=== PATIENT | female | born 1955 | race Caucasian/White ===

== ENCOUNTER 2020-07-14 16:22 | Emergency (ER) | payer OTHER, SELFPAY ==
[2020-07-14 16:24] VITALS: BP 163/108; PULSE 71; RESP 16; TEMP 36.7; O2SAT 99; BMI 38.8
--- NOTE | 2020-07-14 18:14 | ED.DCSUM_ITS ---
History of Present Illness Chief Complaint: General Illness Informant: Patient Onset: Today Narrative: 65-year-old female presenting with multiple complaints. She states that she has a 10 pound weight gain over the course of the last month. She complains of bilateral back pain. She does not have dysuria or hematuria. Patient also states that she has had some shortness of breath with exertion. She does not have cardiac disease that she knows of. She denies any DVT/PE risk factors. She does states that her legs have been swelling over the course of the last month. She does deny chest pain. She denies orthopnea. She states he was seen at the urgent care prior to this and they sent her to the emergency room. Past Medical History - Allergies and Home Meds Allergies/Adverse Reactions: Allergies buspirone Allergy (Verified 07/14/20 19:24) NEEDS FOLLOW-UP lisinopril Allergy (Verified 07/14/20 19:25) NEEDS FOLLOW-UP cough ciprofloxacin Adverse Reaction (Verified 07/14/20 19:25) NEEDS FOLLOW-UP hrt palpatation Sulfa (Sulfonamide Antibiotics) Adverse Reaction (Verified 07/14/20 19:25) Diarrhea pt does not know Primary Care Physician: Indy Davis DO [STAFF PHYSICIAN] - Prior records reviewed: Yes Surgical History: noncontributory Smoking Status: Never smoker Review of Systems General: Denies: Chills, Fever Eyes: Denies: Visual changes - bilaterally, Diplopia ENT: Denies: Rhinorrhea, Sore throat Cardiovascular: Denies: Chest pain Respiratory: Reports: Dyspnea, Dyspnea on exertion. Denies: Paroxysmal noc turnal dyspnea Gastrointestinal: Denies: Abdominal pain, Nausea, Vomiting Genitourinary: Denies: Dysuria Musculoskeletal: Reports: Back pain. Denies: Myalgias, Arthralgias Skin: Denies: Rash, Abscess Neurological: Denies: Headache, Weakness Physical Exam Vital Signs/Narrative: Vital Signs Temp Pulse Resp BP Pulse Ox 07/14/20 16:24 98.1 F 71 16 163/108 H 99 Inital Vital Signs reviewed: Yes General: Well nourished, Well developed, No Acute Distress Head: Normocephalic, Atraumatic Eyes: Perrl, EOMI ENT: Moist mucous membranes, No rhinorrhea Neck: Supple, Nontender Cardiovascular: Regular rate, Regular rhythm Respiratory: No distress, CTA bilaterally Back: Normal Inspection, - - Tenderness to palpation approximately the level of T12-L1. There is no midline spinal tenderness. His she has bilateral tenderness in the paraspinal musculature. There is no rash, ecchymosis. Extremities: Nontender, No edema Skin: Normal color, No rash Neurological: Alert, Oriented x3 Psychological: Normal affect, Normal Mood Diagnostic/Tx/Re-eval Clinical Impression(s) from Imaging Studies Chest X-Ray 07/14/20 18:15 IMPRESSION: Degenerative changes, as described above. No demonstrated acute cardiopulmonary process. Electronically Signed: Maikol Franco, at 19:18 EDT Tel [phone], Service support , Laboratory Data 07/14/20 07/14/20 07/14/20 18:20 18:20 18:20 WBC 8.2 RBC 5.35 Hgb 14.5 Hct 46.0 MCV 86.0 MCH 27.1 MCHC 31.5 L RDW Std Deviation 42.8 RDW Coeff of Anthony 13.7 Plt Count 263 MPV 8.5 Immature Gran % (Auto) 0.200 Neut % (Auto) 67.4 Lymph % (Auto) 23.2 [place] % (Auto) 6.9 Eos % (Auto) 2.1 Baso % (Auto) 0.2 Absolute Neuts (auto) 5.5 Absolute Lymphs (auto) 1.91 Nucleated RBC % 0 Differential Comment SCANNED Sodium 139 Potassium 3.4 L Chloride 103 Carbon Dioxide 33.0 H Anion Gap 3 L BUN 10 Creatinine 0.86 Estim Creat Clear Calc 69.07 Est GFR (MDRD) Af Amer 86 Est GFR (MDRD) Non-Af 71 BUN/Creatinine Ratio 11.7 Glucose 90 Calcium 9.6 Troponin I < 0.015 B-Natriuretic Peptide 22.8 - Rhythm Strip Rhythm Strip: Sinus Rhythm Rate: 52 - EKG Initial EKG Interpretation: No Acute Injury Pattern, Sinus Bradycardia - Medical Decision Making Patient was seen and evaluated on arrival for multiple complaints. As far as her back pain goes there appears to be no midline spinal tenderness or deformity. She has bilateral muscular tenderness. She is concerned this her kidneys. Urinalysis from outside facility does show that she has a UTI. She does not specifically have CVA tenderness. She is also stating that she has weight gain and dyspnea on exertion addition to lower extremity edema. I did not see any pitting edema on examination. Her lungs are clear to auscultation. EKG is sinus rhythm without signs of ischemia. Troponin and BNP are negative. Her other labs are also normal. Given this I do not have a specific reason for her to be short of breath. I will treat her UTI with Keflex since the urgent care did not send her home with antibiotics. She was amenable to this plan. Given return precautions. Impression: 1. Dyspnea 2. 10 pound weight gain reported 3. Back pain 4. UTI ED Disposition - Plan for ED Patient: Disposition: Home or Assisted Living Instructions: Understanding Urinary Tract Infections (UTIs), ED Dyspnea Prescriptions: Cephalexin [Keflex] 500 mg PO Q12 #14 cap Transmission Status: Received by CANDICE RENTERIA[address] [place] [address] Referrals: Indy Davis DO [STAFF PHYSICIAN] -
--- NOTE | 2020-07-14 18:15 | RAD_ITS ---
STUDY: X-RAY CHEST REASON FOR EXAM: Female, 65 years old. Chest pain, abdominal pain. Fatigue. Nausea. TECHNIQUE: Single AP portable view of the chest. COMPARISON: None. FINDINGS: The lungs are clear and expanded. There is no demonstrated pleural abnormality. Normal size heart. Normal mediastinum and reina. Normal visualized pulmonary arteries. Normal visualized aortic arch and descending thoracic aorta. There are diffuse degenerative changes of the visualized thoracic spine. There is anterior fusion of the cervical spine. There is degenerative osteoarthritis of the bilateral shoulders. There is no demonstrated abnormality of the visualized soft tissue structures of the upper abdomen. RAD/Chest 1 View (Portable) IMPRESSION: Degenerative changes, as described above. No demonstrated acute cardiopulmonary process. Electronically Signed: Maikol Franco DO at 19:18 EDT Tel [phone], Service support ,
--- NOTE | 2020-07-14 18:15 | EKG12_ITS ---
Test Reason : GEN ILL Blood Pressure : / mmHG Vent. Rate : 052 BPM Atrial Rate : 052 BPM P-R Int : 208 ms QRS Dur : 098 ms QT Int : 444 ms P-R-T Axes : 039 000 -03 degrees QTc Int : 412 ms Sinus bradycardia Otherwise normal ECG Confirmed by BETO KELLEY, MADONNA ([id number]), adobe maker JEROD OSORIO ([id number]) on 07/15/2020 9:24:43 AM Referred By: LUIS DANIEL Confirmed By:MADONNA PÉREZ MD
[2020-07-14 18:33] LABS: Absolute Lymphocyte Count 1.91 X10^3/uL (0.83-4.51); Absolute Neutrophil Count 5.5 X10^3/uL (2.0-7.7); Basophil# 0.02 X10^3/uL; Basophil% 0.2 % (0-1); Eosinophil# 0.17 X10^3/uL; Eosinophils% 2.1 % (0-5); Hemoglobin 14.5 g/dL (12.0-15.0); Lymphocyte # 1.91 X10^3/ul (4.0); Lymphocyte % 23.2 % (19-41); Mean Corp Hgb Conc 31.5 g/dL (32-36); Mean Corpuscular Hgb 27.1 pg (27.0-32.0); Mean Platelet Vol. 8.5 fl (6.2-12.0); Monocyte# 0.57 X10^3/uL; Monocyte% 6.9 % (0-10); NRBC Flagged by Analyzer 0 % (0-5); Neutrophil # 5.53 X10^3/uL (2.7-7.7); Neutrophil % 67.4 % (47-70); POSITIVE MORPHOLOGY YES; Platelet Count 263 K/mm3 (150-450); RBC Distribution Width CV 13.7 % (11.6-14.6); RBC Distribution Width SD 42.8 fl (35.1-43.9); Red Blood Count 5.35 M/mm3 (4.2-5.4); White Blood Count 8.2 K/mm3 (4.4-11.0)
[2020-07-14 18:34] VITALS: BP 163/93; PULSE 58; RESP 12; O2SAT 100
[2020-07-14 18:35] VITALS: O2SAT 100
[2020-07-14 18:50] LABS: Anion Gap 3 (5-15); BUN 10 mg/dL (7-18); BUN/Creat Ratio 11.7 RATIO (10-20); Calcium,Total 9.6 mg/dL (8.5-10.1); Chloride 103 mmol/L (98-107); Creatinine, Serum 0.86 mg/dL (0.55-1.02); EST Glomerular Filtration Rate 71 mL/min (>60); Est Glom Filt Rate - Afr Amer 86 mL/min (>60); Estimated Creatinine Clearance 69.07 ml/min; Glucose 90 mg/dL (74-106); Potassium 3.4 mmol/L (3.5-5.1); Sodium Level 139 mmol/L (136-145)
[2020-07-14 18:54] LABS: Differential Comment SCANNED; Differential Indicated SCAN CRITERIA MET
[2020-07-14 19:04] LABS: BNP,B-Type NATRIURETIC PEPTIDE 22.8 pg/mL (0-100)
[2020-07-14] MEDS: Cephalexin 250 MG Capsule 500 MG PO (19:48)
[2020-07-14 19:49] VITALS: BP 146/78; PULSE 57; RESP 18; O2SAT 99
== END 2020-07-14 19:55 | disposition home or self-care (01) ==
PROVIDERS: Emergency Provider Student in an Organized Health Care Education/Training Program; PCP Internal Medicine
DX: M54.6 Pain in thoracic spine (principal); N39.0 Urinary tract infection, site not specified; R06.00 Dyspnea, unspecified; R63.5 Abnormal weight gain
CPT/HCPCS: 71045; 80048; 83880; 84484; 85025; 93005; 99285; A4216

== ENCOUNTER 2021-02-03 13:10 | Outpatient (RCR) | payer MEDICARE, OTHER, SELFPAY ==
[2021-02-03] MEDS: COVID-19 VACC, MRNA(PFIZER)/PF 30 MCG/0.3 ML SYRINGE IM (12:00)
[2021-02-24] MEDS: COVID-19 VACC, MRNA(PFIZER)/PF 30 MCG/0.3 ML SYRINGE IM (11:46)
== END 2021-05-05 23:59 ==
LOC: IMMUN 13:10
PROVIDERS: PCP Internal Medicine; Visit Provider Family Medicine
DX: Z23 Encounter for immunization (principal)
CPT/HCPCS: 0001A; 0002A; 91300

== ENCOUNTER 2022-07-25 13:16 | Observation (INO) | payer MEDICARE, OTHER, SELFPAY ==
[2022-07-25] VITALS (10 sets, daily range): BP systolic 123–156; BP diastolic 66–93; PULSE 64–94; RESP 17–20; TEMP 36.2–37.1; O2SAT 92–99; BMI 37.9; BMI 37.0
--- NOTE | 2022-07-25 13:31 | EKG12_ITS ---
Test Reason : SOB Blood Pressure : / mmHG Vent. Rate : 089 BPM Atrial Rate : 089 BPM P-R Int : 214 ms QRS Dur : 092 ms QT Int : 362 ms P-R-T Axes : 041 -07 023 degrees QTc Int : 440 ms Sinus rhythm with 1st degree A-V block Otherwise normal ECG Confirmed by MICHAEL KELLEY, JOCELYN ([id number]), web editor ELOINA BROWN ([id number]) on 07/27/2022 7:33:06 AM Referred By: SRIDEVI Confirmed By:JOCELYN RODRIGUEZ MD
--- NOTE | 2022-07-25 13:32 | EDS_ITS ---
HPI History of Present Illness Chief Complaint: Shortness of Breath Informant: patient Onset/Context/Timing Onset: Weeks Timing: Intermittent Quality: Positive for Dyspnea on exertion Current Severity: Mild Maximum Severity: Mild Worsened by: Exertion Relieved by: Rest Associated Symptoms cough; Negative for ear pain, fever, sore throat, subjective, chills, sweats or clear sputum Chest Pain: Positive for None Narrative Narrative: 67-year-old female history of reflux, hypertension previously had A. fib in 2009 which resolved. She has been anemic before but has never needed a transfusion. Presents complaining of shortness of breath primarily exertional better at rest since the beginning of the month. Denies any chest pain. At times gets a bandlike discomfort in her upper abdomen. Denies any fever or chills. She has a chronic cough which she believes is secondary to her blood pressure medication. No chest pain. No hemoptysis. No prior history of DVT or PE. No recent travel, surgery or immobilization. States she did think she had dark stool about 2 weeks ago but that is since resolved. She is never been anemic to the point to need transfusion. She has no known cardiac history other than prior A. fib which resolved. Patient PE Risk Factors: Negative for Cancer, OCP + Smoking + > 35, Prior DVT or PE, Recent immobilization, Recent surgery or Recent travel Prior similar symptoms: No Recent Illness/Hospitalization: No PFSH PFSH Home Medications Protonix 1 tab PO DAILY 07/14/20 [History Last Taken Unknown] cephalexin 500 mg capsule 500 mg PO Q12 #14 caps 07/14/20 [Rx Last Taken Unknown] citalopram 10 mg tablet 20 mg PO DAILY 07/14/20 [History Last Taken Unknown] hydrochlorothiazide 25 mg tablet 25 mg PO DAILY 07/14/20 [History Last Taken Unknown] losartan 50 mg tablet 50 mg PO DAILY 07/14/20 [History Last Taken Unknown] Allergy/AdvReac Type Severity Reaction Status Date / Time buspirone Allergy NEEDS Verified 07/25/22 13:16 FOLLOW-UP lisinopril Allergy NEEDS Verified 07/25/22 13:16 FOLLOW-UP ciprofloxacin AdvReac NEEDS Verified 07/25/22 13:16 FOLLOW-UP Sulfa (Sulfonamide AdvReac Diarrhea Verified 07/25/22 13:16 Antibiotics) Social History Smoking Status: Never smoker ROS ROS ED ROS Narrative Shortness of breath primarily exertional. Review of Systems ROS Unobtainable: Denies due to encephalopathy Constitutional Constitutional ED: Denies chills or fever(s) Eyes Eyes: Denies blurry vision ENT ENT ED: Denies ear pain Cardiovascular Cardiovascular: Denies chest pain, palpitations or racing heartbeat Respiratory/Chest Respiratory/Chest: Reports cough; Denies dyspnea Gastrointestinal Gastrointestinal: Denies abdominal pain or constipation Genitourinary Genitourinary ED: Denies dysuria or hematuria Musculoskeletal Musculoskeletal: Denies arthralgias Integumentary Denies abscess Neurologic Neurologic: Denies headache(s) Psychiatric Psychiatric: Denies anxiety Endocrine Endocrinology: Denies cold intolerance Hematologic/Lymphatic Hematologic/Lymphatic: Denies easy bleeding Allergic/Immunologic Allergic/Immunologic ED: Denies mouth swelling EXAM Physical Exam Narrative Exam Narrative: 67-year-old female no acute distress. Vital signs stable afebrile. Pulse ox 90% on room air no hypoxia. H EENT exam unremarkable. Neck nontender no JVD. No lymphadenopathy. Lungs clear to auscultation bilaterally. Heart regular rate and rhythm rate about 90 no murmur. Chest were nontender. Abdomen soft nontender. Moving all 4 extremities. Calves are nontender without edema or cords. Neurologically she is awake and alert with no focal motor deficits. Const Vital Signs: 07/25/22 13:17 07/25/22 13:45 07/25/22 13:45 Temperature 97.1 F L 98.7 F Temperature Source Temporal Oral Pulse Rate 94 76 76 Respiratory Rate 20 H 17 17 Blood Pressure 136/93 H 143/87 H 143/87 H Blood Pressure Mean 107 105 105 Pulse Ox 98 92 92 Oxygen Delivery Method Room Air Room Air Room Air 07/25/22 13:45 07/25/22 14:20 Temperature 98.6 F Temperature Source Oral Pulse Rate 64 Respiratory Rate 18 Blood Pressure 144/84 H Blood Pressure Mean 104 Pulse Ox 97 Oxygen Delivery Method Room Air Room Air Positive well nourished, well developed and obese; Negative for cachectic, contractures or unkempt General Appearance ED: well developed and NAD; Negative for unkempt, cachectic, contractures or pallor Nutritional Appearance: obese; Negative for cachectic HEENT Reports moist mucous membranes; Denies dry mucous membranes atraumatic; Negative for trauma or tenderness Mouth ED: No dry mucous membranes Mouth: No dry mucous membranes Eyes PERRL and EOMs intact bilaterally General Eye ED: Negative for pale conjunctiva or scleral icterus Neck no lymphadenopathy, supple, no meningeal signs and no JVD General: Negative for tenderness Lymph Lymphatic: Negative for other Chest Wall Chest: Negative for other Resp normal respiratory effort and clear to auscultation bilaterally Effort and Inspection: Negative for pain with movement Auscultation: Negative for rales, rhonchi or wheezes Cardio regular rate, regular rhythm, S1 normal heart sound, S2 normal heart sound and no murmurs Rate: Negative for bradycardia or tachycardic Rhythm: Negative for abnormal rhythm GI non-tender, non-distended and no masses Inspection: Negative for other Auscultation: normoactive bowel sounds; Negative for hyperactive bowel sounds Palpation: soft; Negative for tender or guarding Bladder / Kidney Exam: No other Back/Spine no CVA tenderness and normal to inspection General Back: Negative for CVA tenderness or tenderness Extremity normal to inspection General Extremety ED: Negative for edema or tenderness General Extremity: Negative for edema Neuro oriented x3 and CN's II-XII intact bilaterally Sensorium / Orientation: alert, oriented to person, oriented to place and oriented to time; Negative for orientation impaired, confused, lethargic or stuporous Speech: speech normal Motor Exam: strength 5/5 throughout Psych mental status grossly normal Appearance: Negative for unkempt Attitude: No agitated Mood & Affect: Negative for depressed Thought Process: normal thought process Skin no wounds and skin turgor normal General Skin Exam: Negative for jaundice or pallor Lesions: no lesions Rashes: no rashes Trauma: Negative for abrasion MDM MDM MDM Narrative Medical decision making narrative: 67-year-old with exertional shortness of breath. No chest pain specifically. Exam benign. Cardiac work-up. Walk with pulse ox on room air. Repeat exam unchanged. We did walk the patient around the department she did not get hypoxic but she got severely winded. She states she can even do 2 flights of steps she has to stop because she starts having so much trouble breathing. She is not having classic anginal chest pain. She has not had I stress test in many years and has never had a cardiac catheterization. She and I discussed options and I will talk to the hospitalist about admitting her for stress testing and possible echo to rule out valvular heart disease or coronary disease. Her exam remains benign. Lab Data Attestation: I reviewed the patient's lab results. Lab results narrative: CBC shows a white count of 7.2. H&H of 14.9 and 46. Platelets of 302. Electrolytes unremarkable gap of 6 normal BUN and creatinine. Glucose 145. Troponin 6. D-dimer is 0.3. Potassium slightly low at 3.1. Labs: Laboratory Results - last 24 hr 07/25/22 07/25/22 07/25/22 13:40 13:40 13:40 WBC 7.2 RBC 5.46 H Hgb 14.9 Hct 46.0 MCV 84.2 MCH 27.3 MCHC 32.4 RDW Std Deviation 41.5 RDW Coeff of Anthony 13.5 Plt Count 302 MPV 8.5 Immature Gran % (Auto) 0.100 Neut % (Auto) 67.1 Lymph % (Auto) 22.8 [place] % (Auto) 7.9 Eos % (Auto) 1.5 Baso % (Auto) 0.6 Absolute Neuts (auto) 4.9 Absolute Lymphs (auto) 1.65 Nucleated RBC % 0 D-Dimer Quant (PE/DVT) 0.30 Sodium 138 Potassium 3.1 L Chloride 103 Carbon Dioxide 29.0 Anion Gap 6 BUN 14 Creatinine 0.95 Estim Creat Clear Calc 60.88 Est GFR (MDRD) Af Amer 75 Est GFR (MDRD) Non-Af 62 BUN/Creatinine Ratio 14.7 Glucose 145 H Calcium 9.9 Troponin I High Sens 6 Radiography Chest X-Ray - ED: 1 View, Read by ED Physician, Read by Radiologist, Heart, Lungs, Mediastinum, Bony Structures, No Acute Disease and Chronic Changes Diagnostic Testing: Clinical Impression(s) from Imaging Studies Chest X-Ray 07/25/22 13:48 IMPRESSION: Normal x-ray examination of the chest. Electronically Signed: Yinka Morrow MD at 14:05 EDT , Chest x-ray, portable, single view interpreted myself and radiologist as no acute abnormality. Normal cardiac silhouette. No CHF. No infiltrate. Rhythm Strip Rhythm Strip: Sinus Rhythm Rate: 89 Ectopy: None EKG Initial EKG: Attestation: I personally reviewed and interpreted this EKG as follows: Interpretation: Sinus Rhythm and No Acute Injury Pattern Comments: Normal sinus rhythm rate of 89 no acute signs of [place] or ischemia. First-degree AV block with a [place] interval of 214. Discharge Plan Dx/Rx/DC Orders Clinical Impression: Exertional dyspnea, History of hypertension Disposition Disposition: Acute Care Hospital [facility]
[2022-07-25 13:43] LABS: Absolute Lymphocyte Count 1.65 X10^3/uL (0.83-4.51); Absolute Neutrophil Count 4.9 X10^3/uL (2.0-7.7); Basophil# 0.04 X10^3/uL; Basophil% 0.6 % (0-1); Eosinophil# 0.11 X10^3/uL; Eosinophils% 1.5 % (0-5); Hemoglobin 14.9 g/dL (12.0-15.0); Lymphocyte # 1.65 X10^3/ul (0.83-4.51); Lymphocyte % 22.8 % (19-41); Mean Corp Hgb Conc 32.4 g/dL (32-36); Mean Corpuscular Hgb 27.3 pg (27.0-32.0); Mean Corpuscular Volume 84.2 fL (81-99); Mean Platelet Vol. 8.5 fl (6.2-12.0); Monocyte# 0.57 X10^3/uL; Monocyte% 7.9 % (0-10); NRBC Flagged by Analyzer 0 % (0-5); Neutrophil # 4.86 X10^3/uL (2.7-7.7); Neutrophil % 67.1 % (47-70); Platelet Count 302 K/mm3 (150-450); RBC Distribution Width CV 13.5 % (11.6-14.6); RBC Distribution Width SD 41.5 fl (35.1-43.9); Red Blood Count 5.46 M/mm3 (4.2-5.4); White Blood Count 7.2 K/mm3 (4.4-11.0)
--- NOTE | 2022-07-25 13:48 | RAD_ITS ---
STUDY: X-RAY CHEST REASON FOR EXAM: Female, 67 years old. chest pain TECHNIQUE: Single AP portable view of the chest. COMPARISON: 07/14/2020 FINDINGS: Status post anterior cervical discectomy and fusion lower cervical spine. The lungs are clear and expanded. There is no demonstrated pleural abnormality. Normal size heart. Normal mediastinum and reina. Normal visualized pulmonary arteries. Normal visualized aortic arch and descending thoracic aorta. Normal visualized thoracic spine. Normal visualized ribs, clavicles, and shoulders. There is no demonstrated abnormality of the visualized soft tissue structures of the upper abdomen. RAD/Chest 1 View (Portable) IMPRESSION: Normal x-ray examination of the chest. Electronically Signed: Yinka Morrow MD at 14:05 EDT ,
[2022-07-25 14:00] LABS: Anion Gap 6 (5-15); BUN 14 mg/dL (7-18); BUN/Creat Ratio 14.7 RATIO (10-20); Calcium,Total 9.9 mg/dL (8.5-10.1); Chloride 103 mmol/L (98-107); Creatinine, Serum 0.95 mg/dL (0.55-1.02); EST Glomerular Filtration Rate 62 mL/min (>60); Est Glom Filt Rate - Afr Amer 75 mL/min (>60); Estimated Creatinine Clearance 60.88 ml/min; Glucose 145 mg/dL (74-106); Potassium 3.1 mmol/L (3.5-5.1); Sodium Level 138 mmol/L (136-145); Troponin-I HS (w/2H Reflex) 6 pg/mL (3.0-54.0)
--- NOTE | 2022-07-25 15:19 | HP.PCM.HOS_ITS ---
HPI - General General Date of Admission: 07/25/22 Date of Service: 07/25/22 HPI Narrative HARRIET VICTORIA, is a 67 F with a PMH as outlined who presents via the ED on 07/25/2022 with a complaint of shortness of breath and easy fatiguability. Her symptoms had been going on for about a month. Her shortness of breath is associated with worsening with exertion and gets better with rest. It has been gradually worsening and she is unable to even climb 2 flights of stairs, which is unlike her. She denied any chest pain, cough, palpitations, nausea, vomiting or any other symptoms. She denied any lightheadedness or dizziness. She admitted to episodic palpitations, and also said she had been feeling very weak and tired. She also said she had been taking some medication for her arthritis, and says she had black stools for about 2 weeks whilst on the medication, which was later seen to be diclofenac per review of her MyChart. She denies any history of PE, or any recent long distance travel, surgery or otherwise. She has a history of afib back in 2009 which had subsequently resolved. She also complains of feeling very bloated and lots of belching and passing gas. She had a mammogram last year which was normal, and had a cologuard last year which was also n egative. She had a colonoscopy ~ 6 years ago which was also negative. She denies any history of cancer, though says her sister was recently diagnosed with thyroid cancer. Vitals in the ED were blood pressure 144/84, pulse rate of 64 respiratory rate of 18 and she was saturating at 97% on room air. Temperature was 98.6.CBC was unremarkable. BMP was significant for potassium of 3.1, and initial high sensitivity troponin was negative. EKG showed no acute ST changes. CXR showed no acute cardiopulmonary process. She is being admitted to be managed for exertional dyspnea and easy fatiguability. [facility] Home Medications Protonix 1 tab PO DAILY 07/14/20 [History Last Taken Unknown] cephalexin 500 mg capsule 500 mg PO Q12 #14 caps 07/14/20 [Rx Last Taken Unknown] citalopram 10 mg tablet 20 mg PO DAILY 07/14/20 [History Last Taken Unknown] hydrochlorothiazide 25 mg tablet 25 mg PO DAILY 08/17/20 [History Last Taken Unknown] losartan 50 mg tablet 50 mg PO DAILY 07/14/20 [History Last Taken Unknown] Allergy/AdvReac Type Severity Reaction Status Date / Time buspirone Allergy NEEDS Verified 07/25/22 13:16 FOLLOW-UP lisinopril Allergy NEEDS Verified 07/25/22 13:16 FOLLOW-UP ciprofloxacin AdvReac NEEDS Verified 07/25/22 13:16 FOLLOW-UP Sulfa (Sulfonamide AdvReac Diarrhea Verified 07/25/22 13:16 Antibiotics) Social History Smoking Status: Never smoker ROS Review of Systems ROS Unobtainable: Denies due to encephalopathy Constitutional Constitutional: Reports change in weight, fatigue, malaise and weakness; Denies anorexia, chills or fever(s) Eyes Eyes: Denies change in vision ENT HEENT: Denies dysphagia, ear pain or nasal congestion Cardiovascular Cardiovascular: Reports chest pain, dyspnea on exertion and palpitations; Denies claudication, edema, lightheadedness, orthopnea, paroxysmal nocturnal dyspnea or rapid heart rate Respiratory/Chest Respiratory/Chest: Denies cough, dyspnea, excessive phlegm production, hemoptysis or productive cough Gastrointestinal Gastrointestinal: Reports melena; Denies abdominal pain, constipation, diarrhea, nausea or vomiting Genitourinary Genitourinary: Denies dysuria Musculoskeletal Musculoskeletal: Denies back pain, joint pain, joint stiffness or joint swelling Neurologic Neurologic: Denies confusion, dizziness, focal weakness or headache(s) Psychiatric Psychiatric: Denies anxiety Hematologic/Lymphatic Hematologic/Lymphatic: Denies anemia or easy bleeding Vital Signs Vital Signs Vital Signs: 07/25/22 13:17 07/25/22 13:45 07/25/22 13:45 Temperature 97.1 F L 98.7 F Temperature Source Temporal Oral Pulse Rate 94 76 76 Respiratory Rate 20 H 17 17 Blood Pressure 136/93 H 143/87 H 143/87 H Blood Pressure Mean 107 105 105 Pulse Ox 98 92 92 Oxygen Delivery Method Room Air Room Air Room Air 07/25/22 13:45 07/25/22 14:20 Temperature 98.6 F Temperature Source Oral Pulse Rate 64 Respiratory Rate 18 Blood Pressure 144/84 H Blood Pressure Mean 104 Pulse Ox 97 Oxygen Delivery Method Room Air Room Air Weight Weight: 257 lb 0.944 oz Body Mass Index (BMI) 37.9 Physical Exam Const alert, oriented x3 and no apparent distress General Appearance: cooperative HEENT normocephalic, head/scalp atraumatic, hearing grossly normal bilaterally and moist oral mucous membranes Mouth: oral and palatal mucosa normal Eyes PERRL, EOMs intact bilaterally and conjunctivae normal Neck no lymphadenopathy and supple Resp normal respiratory effort, no retractions, no use of accessory muscles and clear to auscultation bilaterally Cardio regular rate, regular rhythm, S1 normal heart sound, S2 normal heart sound and no murmurs GI normal to inspection, nondistended, normoactive bowel sounds, soft to palpation and non-tender Extremity normal to inspection and full ROM Neuro oriented x3, CN's II-XII intact bilaterally and moves all extremities Sensorium / Orientation: awake and alert Motor Exam: strength 5/5 throughout Psych affect normal Results Lab / Micro Data Result Diagrams: 07/25/22 13:40 07/25/22 13:40 Labs: Laboratory Results - last 24 hr 07/25/22 13:40: WBC 7.2, RBC 5.46 H, Hgb 14.9, Hct 46.0, MCV 84.2, MCH 27.3, MCHC 32.4, RDW Std Deviation 41.5, RDW Coeff of Anthony 13.5, Plt Count 302, MPV 8.5, Immature Gran % (Auto) 0.100, Neut % (Auto) 67.1, Lymph % (Auto) 22.8, Conway % (Auto) 7.9, Eos % (Auto) 1.5, Baso % (Auto) 0.6, Absolute Neuts (auto) 4.9, Absolute Lymphs (auto) 1.65, Nucleated RBC % 0 07/25/22 13:40: Sodium 138, Potassium 3.1 L, Chloride 103, Carbon Dioxide 29.0, Anion Gap 6, BUN 14, Creatinine 0.95, Estim Creat Clear Calc 60.88, Est GFR (MDRD) Af Amer 75, Est GFR (MDRD) Non-Af 62, BUN/Creatinine Ratio 14.7, Glucose 145 H, Calcium 9.9, Troponin I High Sens 6 07/25/22 13:40: D-Dimer Quant (PE/DVT) 0.30 Rhythm Strip Rhythm Strip: Sinus Rhythm Rate: 89 Ectopy: None Radiology Impression Chest X-Ray 07/25/22 13:48 IMPRESSION: Normal x-ray examination of the chest. Electronically Signed: Yinka Morrow MD at 14:05 EDT , Assessment & Plan Assessment/Plan (1) Exertional dyspnea: (2) Weakness: PLAN: Plan #Exertional shortness of breath and easy fatiguability * her symptoms are very vague. * She has had associated unintentional weight loss of ~ 12 pounds over the last month * she also had dark stools ~ 2 weeks ago whilst taking diclofenac for arthritis * troponin x 2 is negative so far * admit to PCU * SL nitroglycerin, PO aspirin * will check TSH * will order stress test tomorrow * will consider getting a schroeder CT of the chest, abdomen and pelvis to rule out any malignancy in light of her unintentional weight loss, palpitations and weakness. * check stool for occult blood * D dimer is only 0.3. * #Hypokalemia: K is 3.1. Will replace and trend. #Hypertension: * on HCTZ and losartan. * BP is elevated in the 170s at time of review. Says she takes her meds in the evenings, and took it last night, but hasnt yet taken it this morning. DVT prophylaxis: lovenox Code status: full code * Patient counseled extensively about different types of CODE STATUS including full code, DNR CCA and DNR CCA. Patient elects to be full code. * Total pzud-bi-ejqs time 16 minutes. Charges/Coding Visit Charges OBSV E&M: 57126 Initial observation care L3 Procedures Hospitalists Procedures: 62220 Advncd Care Plan 30 Min
[2022-07-25 15:41] LABS: Reflex Troponin-HS? (from REC) Y
[2022-07-25 16:35] LABS: Troponin-I HS 7 pg/mL (3.0-54.0)
[2022-07-25] MEDS: Potassium Chloride Oral Tablet 20 MEQ 40 MEQ PO (18:07)
[2022-07-25 18:12] LABS: Thyroid Stim Hormone (TSH) 1.96 uIU/mL (0.358-3.74)
[2022-07-25 20:05] LABS: Troponin-I HS 7 pg/mL (3.0-54.0)
[2022-07-25] MEDS: hydroCHLOROthiazide 25 MG Tablet PO (22:33)
[2022-07-25] MEDS: Losartan Potassium 50 MG Tablet PO (22:33)
[2022-07-25] MEDS: Pantoprazole Sodium 20 MG Tablet PO (22:33)
[2022-07-25] MEDS: Citalopram 20 MG Tablet PO (22:33)
[2022-07-25] MEDS: Calcium Carbonate 500 MG Tablet 1000 MG PO (23:03)
[2022-07-26 03:37] VITALS: PULSE 59
[2022-07-26 06:02] VITALS: BP 156/77; PULSE 58; RESP 16; TEMP 37; O2SAT 96
[2022-07-26 07:15] VITALS: PULSE 55
--- NOTE | 2022-07-26 09:31 | STRESSREP ---
Stress Test Report Date: Procedure: Exercise tolerance test/imaging study Indications: Shortness of breath/dyspnea on exertion Consent: Per the patient Procedure: The patient exercised on a Rex protocol for 1 minute and 31 seconds not completing Stage I achieving a peak heart rate of 150 bpm (97% predicted maximal heart rate) with a peak blood pressure 118/82 mmHg and a peak MET capacity of 4 METs. The baseline ECG demonstrated normal sinus rhythm. The peak exercise ECG demonstrated no obvious ECG changes. There were no cardiac dysrhythmias pretest, during exercise, or recovery. The functional capacity was considered decreased. There was no complaint of chest discomfort during exercise or recovery. The examination was discontinued secondary to dyspnea. Impression: 1. Technically adequate (percent predicted maximal heart rate greater than 85%) exercise tolerance test 2. Peak exercise ECG with no obvious ECG changes 3. There were no cardiac dysrhythmias pretest, during exercise, or recovery 4. Pharmacologic (Regadenoson) evaluation pending Procedure: Pharmacologic stress nuclear imaging study Consent: Per the patient Procedure: The patient underwent pharmacologic (Regadenoson 0.4mg ) evaluation with a peak heart rate of 118 beats per minute (76%predicted maximal heart rate) and a peak blood pressure of 138/80 mmHg. The baseline ECG demonstrated normal sinus rhythm; occasional PVC. The peak pharmacologic ECG demonstrated no obvious ECG changes. There was an occasional PVC preinfusion and in recovery. There was no complaint of chest discomfort during pharmacologic infusion or recovery. The examination was discontinued secondary to completion of protocol. Impression: 1. Pharmacologic (Regadenoson) evaluation 2. Peak pharmacologic ECG with no obvious ECG changes. 3. There was an occasional PVC preinfusion and in recovery. 4. Nuclear images pending Myocardial perfusion imaging study: Technique: The patient was injected with 14.5 millicuries of technetium 99m Cardiolite and subsequently rest SPECT Cardiolite nuclear imaging was obtained in the horizontal long, vertical long, and short axis views. The patient exercised on a Rex protocol for 1 minute and 31 seconds not completing Stage I achieving a peak heart rate of 150 bpm (97% predicted maximal heart rate) with a peak blood pressure 118/82 mmHg and a peak MET capacity of 4 METs. The patient underwent pharmacologic (Regadenoson) evaluation with a peak heart rate of 118 bpm (76% predicted maximal heart rate) and a peak blood pressure of 138/80 mmHg. The patient was injected with 44.2 millicuries of technetium 99m Cardiolite and subsequently stress SPECT Cardiolite nuclear imaging was obtained in the horizontal long, vertical long, and short axis views. A gated Cardiolite study at peak stress was obtained. Interpretation: Rest and stress SPECT Cardiolite nuclear imaging status post realignment, normalization, and attenuation correction demonstrate the appearance of body motion during image acquisition and at rest the appearance of subtle diminished tracer uptake in the distal anterior/anteroapical segments which appears to improve/normalize following stress. There is end systolic thickening and brightening. The gated Cardiolite study demonstrates myocardial thickening and inward wall motion. The reported LVEF is 79%. Impression: 1. Rest and stress SPECT current nuclear imaging demonstrate the appearance of body motion during image acquisition and at rest the appearance of subtle diminished tracer uptake in the distal anterior/anteroapical segments which appears to improve/normalize following stress appearing compatible with shifting soft tissue attenuation/artifact with no myocardial perfusion changes considered diagnostic for associated stress-induced myocardial ischemia. 2. The gated Cardiolite study reports an LVEF of 79%. This note was generated with [employer] software. It may contain incorrect words, spelling, and punctuation that were not noted in checking the note before signing.
[2022-07-26 09:35] VITALS: BP 115/71; PULSE 61; RESP 18; TEMP 36.6; O2SAT 97
[2022-07-26 10:26] LABS: Anion Gap 7 (5-15); BUN 13 mg/dL (7-18); BUN/Creat Ratio 13.6 RATIO (10-20); Calcium,Total 9.5 mg/dL (8.5-10.1); Chloride 104 mmol/L (98-107); Creatinine, Serum 0.96 mg/dL (0.55-1.02); EST Glomerular Filtration Rate 62 mL/min (>60); Est Glom Filt Rate - Afr Amer 75 mL/min (>60); Estimated Creatinine Clearance 60.24 ml/min; Glucose 127 mg/dL (74-106); Potassium 3.5 mmol/L (3.5-5.1); Sodium Level 137 mmol/L (136-145)
--- NOTE | 2022-07-26 10:56 | CT_ITS ---
STUDY: CT CHEST, ABDOMEN T PELVIS WITH CONTRAST REASON FOR EXAM: Female, 67 years old. Unintentional weight loss, SOB, abd pain RADIATION DOSAGE (If Supplied By Facility): CTDIvol = ( 23.43 ) mGy, DLP = ( 2363.84 ) mGycm TECHNIQUE: Transaxial imaging was performed following intravenous administration of Oral and amp; IV Gastrografin and amp; 100mL Isovue-300. Multiplanar coronal and sagittal images were reformatted. Individualized dose optimization techniques were used for this CT. COMPARISON: No relevant priors. FINDINGS: CHEST Mild heterogeneous appearance of the thyroid gland. Small benign-appearing bilateral axillary lymph nodes. Mild degree of the increased linear markings at the lung bases suggestive of bibasilar scarring. There is no demonstrated pleural abnormality. Normal heart and pericardium. Normal mediastinum. Normal hilar regions. Normal unenhanced pulmonary arteries. Normal aorta arch and descending thoracic aorta. There are degenerative changes of the thoracic spine. Fatty infiltration of the liver. The patient is status post cholecystectomy. ABDOMEN There is decreased attenuation of the liver consistent with steatosis. There are surgical clips in the gallbladder fossa consistent with a prior cholecystectomy. Normal spleen. Normal pancreas. Normal bilateral adrenal glands. Normal right kidney. Normal left kidney. There is a small hiatal hernia. Normal small intestine. There are multiple colonic diverticula consistent with diverticulosis. A moderate amount of fecal material is seen throughout the colon. The appendix is visualized and appears normal. There is scattered atherosclerotic calcification of the abdominal aorta, without a demonstrated aneurysm. Normal inferior vena cava. Normal retroperitoneum. There is a right-sided inguinal hernia containing adipose tissue. There are diffuse degenerative changes of the visualized lumbar spine. PELVIS Normal urinary bladder. There is no pelvic fluid. There is no pelvic lymphadenopathy or mass lesion. Normal visualized pelvic arteries. CT/CT Chest, Abd, Pel w/Contrast IMPRESSION: Fatty infiltration of the liver. Status post cholecystectomy. Scattered sigmoid diverticula. Moderate amount of fecal material is seen throughout the colon. Electronically Signed: Juan C Yanes MD at 13:34 EDT ,
--- NOTE | 2022-07-26 11:02 | DCINST_ITS ---
Discharge Instructions Diet Discharge Diet: 2000 Calorie Control Diet Activity Discharge Activity: Return to Normal Activity Dressing / Incision Call your doctor if you observe: Shortness of breath, Dizziness and Chest pain Follow Up Care Test Results: Test results from this visit will be discussed in further detail at your follow- up appointment, if applicable. Discharge Plan Admission Admit Date/Time: 07/25/22 15:32 Primary Reason for Your Visit: Dyspnea, fatigue Attending Provider: Ronnie Alberts Primary Care Provider: Jonathan Wright Consulting Providers: Hallie Han Discharge Orders/Prescriptions Prescriptions: New pantoprazole [Protonix] 40 mg tablet,delayed release (DR/EC) 40 mg PO BID Qty: 60 0RF Continued losartan 50 MG tablet 25 mg PO DAILY citalopram 10 mg tablet 20 mg PO DAILY hydrochlorothiazide 25 MG tablet 25 mg PO DAILY amlodipine 10 mg PO.IVFORM DAILY Discontinued Protonix 20 MG 1 tab PO DAILY pantoprazole 40 mg PO.IVFORM DAILY Referrals / Follow Up: Jonathan Wright MD [Primary Care Provider] - In 1 Week Disposition Disposition (needs filled in before D/C Order can be placed): Home, Self Care
--- NOTE | 2022-07-26 11:07 | CASEMGMT ---
ERNST notified patient that her Healthcare Power of Instructor Physical and Healthcare Living Will are not on file at [facility]. ERNST asked patient to bring in a copy of documents when able. Kelly LAFLEUR
[2022-07-26 11:30] VITALS: PULSE 57
[2022-07-26 11:55] LABS: Hemoglobin A1c 5.7 % (3.8-5.6)
--- NOTE | 2022-07-26 12:12 | CASEMGMT ---
Pt has been up independent in room per nursing and states no concerns with going home at time of discharge. Pt is awaiting CT scan of abd/pelvis and then plan is for d/c. Dorinda FRAZIER CM
[2022-07-26] MEDS: Acetaminophen 325 MG Tablet 650 MG PO (13:19)
--- NOTE | 2022-07-26 14:26 | PCM.DC.SUM ---
Documented by User: Neeru Lr NP, CONTESTANT COORDINATOR-C 07/26/22 14:31 Providers Date of Admission: 07/25/22 Date of Discharge: 07/26/22 Primary Care Physician: Dr. Jonathan Wright MD Reason For Visit: ANGINA Diagnosis Discharge Diagnosis (1) Exertional dyspnea: Status: Acute Code(s): R06.09 - Other forms of dyspnea (2) Weakness: Status: Acute Code(s): R53.1 - Weakness Medications at Discharge Home Medications citalopram 10 mg tablet 20 mg PO DAILY 07/14/20 hydrochlorothiazide 25 mg tablet 25 mg PO DAILY 07/14/20 losartan 50 mg tablet 25 mg PO DAILY 07/14/20 amlodipine 10 mg PO.IVFORM DAILY 07/25/22 pantoprazole 40 mg tablet,delayed release (Protonix) 40 mg PO BID #60 tabs 07/26/22 Hospital Course Operations None Procedures Stress test Summary of Care Provided Hospital Course: Patient is a 67-year-old female admitted 07/25/2022 due to exertional dyspnea. 1. Exertional dyspnea, fatigue, recent unintentional weight loss-patient underwent nuclear stress test which was negative for ischemia. LVEF 79%. TSH normal. CT of chest, abdomen and pelvis obtained due to report of recent unintentional weight loss which demonstrated fatty infiltration of the liver and moderate amount of fecal material throughout the colon. Lab work unremarkable with the exception of mildly elevated hemoglobin A1c 5.7%. Increase PPI to 40 mg twice daily for 1 month as patient reports uncontrolled GERD. Follow-up with PCP in 1 week for ongoing outpatient evaluation. 2. Prediabetes-hemoglobin A1c 5.7%. Recommend carb controlled diet and lifestyle modifications. 3. Hypertension-continue HCTZ, losartan. Patient seen and examined prior to discharge. Physical assessment as noted below. Patient is stable for discharge with follow up recommendations as noted above. This patient was seen by LANA WenC under the supervision of Dr. Alberts. Time spent examining patient, reviewing data and subsequent management of care: 22 minutes Physical Exam Const alert, oriented x3 and no apparent distress Orientation / Consciousness: awake, oriented to person, oriented to place and oriented to time Nutritional Appearance: obese HEENT normocephalic and moist oral mucous membranes Eyes PERRL, EOMs intact bilaterally and conjunctivae normal Neck no lymphadenopathy Resp normal respiratory effort and clear to auscultation bilaterally Cardio regular rate, regular rhythm and no murmurs Peripheral Pulses: pulses 2+ throughout GI normal to inspection, nondistended, normoactive bowel sounds, non-tender and non-distended Extremity normal to inspection Skin no rashes or lesions noted Lesions: no lesions Rashes: no rashes Trauma: no lacerations or abrasions Neuro CN's II-XII intact bilaterally, no focal motor deficits, no sensory deficits noted and deep tendon reflexes 2+ bilaterally Psych mental status grossly normal and affect normal Weight / BMI Weight Weight: 251 lb 5.231 oz Body Mass Index (BMI) 37.0 ABG / Lab / Microbiology Data Result Diagrams: 07/25/22 13:40 07/26/22 10:07 Laboratory: Laboratory Results - last 24 hr 07/25/22 13:40: D-Dimer Quant (PE/DVT) 0.30 07/25/22 15:45: Troponin I High Sens 7 07/25/22 15:45: TSH 1.96 07/25/22 19:29: Troponin I High Sens 7 07/26/22 10:07: Sodium 137, Potassium 3.5, Chloride 104, Carbon Dioxide 26.0, Anion Gap 7, BUN 13, Creatinine 0.96, Estim Creat Clear Calc 60.24, Est GFR (MDRD) Af Amer 75, Est GFR (MDRD) Non-Af 62, BUN/Creatinine Ratio 13.6, Glucose 127 H, Calcium 9.5 07/26/22 10:07: Hemoglobin A1c 5.7 H Radiography Diagnostic Testing: Radiology Impression Chest/Abdomen/Pelvis CT 07/26/22 10:56 IMPRESSION: Fatty infiltration of the liver. Status post cholecystectomy. Scattered sigmoid diverticula. Moderate amount of fecal material is seen throughout the colon. Electronically Signed: Juan C Yanes MD at 13:34 EDT , D/C Instructions Discharge Diet: 2000 Calorie Control Diet Call your doctor if you observe: Shortness of breath, Dizziness and Chest pain Meaningful Use Info Meaningful Use Diagnoses (Choose all that apply): None applicable Discharge Plan Admission Admit Date/Time: 07/25/22 15:32 Primary Reason for Your Visit: Dyspnea, fatigue Attending Provider: Ronnie Alberts Primary Care Provider: Jonathan Wright Consulting Providers: Hallie Han Discharge Orders/Prescriptions Prescriptions: New pantoprazole [Protonix] 40 mg tablet,delayed release (DR/EC) 40 mg PO BID Qty: 60 0RF Continued losartan 50 MG tablet 25 mg PO DAILY citalopram 10 mg tablet 20 mg PO DAILY hydrochlorothiazide 25 MG tablet 25 mg PO DAILY amlodipine 10 mg PO.IVFORM DAILY Discontinued Protonix 20 MG 1 tab PO DAILY pantoprazole 40 mg PO.IVFORM DAILY Referrals / Follow Up: Jonathan Wright MD [Primary Care Provider] - In 1 Week Disposition Disposition (needs filled in before D/C Order can be placed): Home, Self Care Documented by User: Dr. Ronnie Alberts MD 07/26/22 15:31 Providers Date of Admission: 07/25/22 Reason For Visit: ANGINA Diagnosis Discharge Diagnosis (1) Exertional dyspnea: Status: Acute Code(s): R06.09 - Other forms of dyspnea (2) Weakness: Status: Acute Code(s): R53.1 - Weakness Medications at Discharge Home Medications citalopram 10 mg tablet 20 mg PO DAILY 07/14/20 hydrochlorothiazide 25 mg tablet 25 mg PO DAILY 07/14/20 losartan 50 mg tablet 25 mg PO DAILY 07/14/20 amlodipine 10 mg PO.IVFORM DAILY 07/25/22 pantoprazole 40 mg tablet,delayed release (Protonix) 40 mg PO BID #60 tabs 07/26/22 ABG / Lab / Microbiology Data Result Diagrams: 07/25/22 13:40 07/26/22 10:07 Discharge Plan Admission Admit Date/Time: 07/25/22 15:32 Primary Reason for Your Visit: Dyspnea, fatigue Attending Provider: Ronnie Alberts Primary Care Provider: Jonathan Wright Consulting Providers: Hallie Han Discharge Orders/Prescriptions Prescriptions: New pantoprazole [Protonix] 40 mg tablet,delayed release (DR/EC) 40 mg PO BID Qty: 60 0RF Continued losartan 50 MG tablet 25 mg PO DAILY citalopram 10 mg tablet 20 mg PO DAILY hydrochlorothiazide 25 MG tablet 25 mg PO DAILY amlodipine 10 mg PO.IVFORM DAILY Discontinued Protonix 20 MG 1 tab PO DAILY pantoprazole 40 mg PO.IVFORM DAILY Referrals / Follow Up: Jonathan Wright MD [Primary Care Provider] - In 1 Week Disposition Disposition (needs filled in before D/C Order can be placed): Home, Self Care Charges/Coding Addendum Addendum: Addendum: Dr. Alberts I personally examined the patient and reviewed the chart. I agree with the above. 67-year-old male with a history of hypertension and depression as well as GERD presents to the hospital with shortness of breath. This was worse over the last several days and she has been noticing mostly with exertion. Troponin was unremarkable and she had a stress test which was normal. Because of her continued shortness of breath, CT of her chest abdomen pelvis was obtained and this was also unremarkable for pneumonia or signs of COPD. She has been complaining of significant abdominal fullness as well as reflux therefore we will plan to increase her PPI to 40 mg p.o.twice daily and recommend outpatient follow-up if her dyspnea on exertion does not improve. I discussed with her the plan for possible discharge today she expressed understanding Flakito is going home and wants to go home today. Clinical time spent in all aspects of patient care including discharge plannin minutes Visit Charges OBSV E&M: 79281 Observation care discharge
[2022-07-26 15:16] VITALS: BP 119/80; PULSE 68; RESP 16; TEMP 36.8; O2SAT 98
== END 2022-07-26 11:02 | disposition home or self-care (01) ==
LOC: ED 15:34 → PCU 16:02
PROVIDERS: Nurse Practitioner Family; Admitting Provider Student in an Organized Health Care Education/Training Program; Emergency Provider Emergency Medicine; PCP Internal Medicine; Visit Provider Family Medicine
DX: R53.1 Weakness (principal); I10 Essential (primary) hypertension; R53.83 Other fatigue; K21.9 Gastro-esophageal reflux disease without esophagitis; K76.0 Fatty (change of) liver, not elsewhere classified; R63.4 Abnormal weight loss; M19.90 Unspecified osteoarthritis, unspecified site; Z79.899 Other long term (current) drug therapy; E87.6 Hypokalemia; R73.03 Prediabetes; R06.02 Shortness of breath
CPT/HCPCS: 36415; 71045; 71260; 74177; 78452; 80048; 83036; 84443; 84484; 85025; 85379; 93005; 93017; 99218; 99284; A9500; Q9967; A4216; G0378; J2785

== ENCOUNTER 2022-09-04 14:41 | Emergency (ER) | payer MEDICARE, OTHER, SELFPAY ==
[2022-09-04 14:41] VITALS: BP 144/94; PULSE 93; RESP 18; TEMP 35.9; O2SAT 96; BMI 37.8
--- NOTE | 2022-09-04 15:04 | EDS_ITS ---
HPI History of Present Illness Chief Complaint: Cellulitis Narrative Narrative: Patient with prediabetes presents with approximately 2 days of right foot pain and swelling with red streaking up her right foot. She denies any fevers or chills, no nausea or vomiting, no other symptoms. She has history of gout and thought maybe her right toe pain and foot pain was secondary to gout. Of note, she was also being treated for MRSA of her fingertip. She is finishing up a course of doxycycline and only has 1 tablet left. She states that she was seen at urgent care for her fingertip infection where they took cultures and was initially placed on cephalexin, but was told to stop that and placed on doxycycline. Additionally, she has a prescription that was filled for nitrofurantoin for urinary tract infection, but was called and told to stop that because she actually did not have an infection according to her. She presents because of the redness of her right foot near the first MTP joint, and the red streaking up her foot that has gotten worse since yesterday. [facility] Medical History Anxiety Atrial fibrillation Depression GERD (gastroesophageal reflux disease) Hearing loss, left Hypertension Hypertension Non-smoker Sleep apnea Home Medications citalopram 10 mg tablet 20 mg PO DAILY 07/14/20 [History Last Taken Unknown] hydrochlorothiazide 25 mg tablet 25 mg PO DAILY 07/14/20 [History Last Taken Unknown] losartan 50 mg tablet 25 mg PO DAILY 07/14/20 [History Last Taken Unknown] amlodipine 10 mg PO.IVFORM DAILY 07/25/22 [History Last Taken Unknown] pantoprazole 40 mg tablet,delayed release (Protonix) 40 mg PO BID #60 tabs 07/26/22 [Rx Last Taken Unknown] sulfamethoxazole 800 mg-trimethoprim 160 mg tablet (Bactrim DS) 1 tab PO BID 10 days #20 tabs 09/04/22 [Rx Last Taken Unknown] Allergy/AdvReac Type Severity Reaction Status Date / Time buspirone Allergy NEEDS Verified 09/04/22 14:44 FOLLOW-UP lisinopril Allergy NEEDS Verified 09/04/22 14:44 FOLLOW-UP ciprofloxacin AdvReac NEEDS Verified 09/04/22 14:44 FOLLOW-UP Sulfa (Sulfonamide AdvReac Diarrhea Verified 09/04/22 14:44 Antibiotics) Surgical History History of cholecystectomy Social History Smoking Status: Never smoker ROS ROS ED ROS Narrative Constitutional: No fever, no chills. HEENT: No sore throat. No neck pain. No loss of vision. No rhinorrhea. Cardiovascular: No chest pain. No palpitations. No pedal edema. Respiratory: No cough, no shortness of breath. Abdominal: No abdominal pain. No nausea. No vomiting. Genitourinary: No dysuria. No hematuria. Musculoskeletal: No myalgias. Right great toe redness, pain, and swelling with red streak up the foot. Neurologic: No headaches. No dizziness. No lightheadedness. Skin: No rash. No change in color. Psychiatric: No depression. No anxiety. EXAM Physical Exam Narrative Exam Narrative: Afebrile. Vital signs noted. Nontoxic-appearing. HEENT: Normocephalic. Atraumatic. PERRL, EOMI. Neck soft and supple. No point tenderness or step off. Cardiovascular: Regular rate and rhythm. No murmurs, rubs, or gallops appreciated. Respiratory: No tachypnea. Lungs clear to auscultation bilaterally. Gastrointestinal: Abdomen soft, nontender, with normoactive bowel sounds. No rebound or guarding. Neurological: Awake. Alert. Nonfocal, nonlateralizing. Skin: No rash. Mild erythema with swelling at right MTP joint with lymphangitic streaking to level of ankle. No pallor. Dry skin on foot noted. Musculoskeletal: No pedal edema. Full range of motion extremities. Palpable dorsalis pedis pulse. Const Vital Signs: 09/04/22 14:41 09/04/22 15:40 Temperature 96.7 F L 96.7 F L Temperature Source Temporal Temporal Pulse Rate 93 93 Respiratory Rate 18 18 Blood Pressure 144/94 H 144/94 H Blood Pressure Mean 110 110 Pulse Ox 96 96 Oxygen Delivery Method Room Air Room Air MDM MDM MDM Narrative Medical decision making narrative: I had a lengthy discussion with the patient. She is afebrile here. She is not tachycardic. She is nontoxic-appearing. While her right MTP joint could be tender and swollen secondary to a gouty arthritis exacerbation/podagra, given the lymphangitic streaking, I do feel that she needs antibiotics. Although she states she has an allergy to sulfa antibiotics, it causes diarrhea and I do not feel this is a true allergy. In order to treat any MRSA as she was diagnosed with this in the past and was treated for her fingertip infection, I will place her on Bactrim. I will also tell her to continue her cephalexin prescription so she will be double covered with antibiotics. I do not feel that she requires laboratory work currently. She was told to return with any increased redness or red streaking up her leg, new or worsening symptoms. As there is no crepitance of her foot, I I am not concerned for necrotizing fasciitis. She states that she has a follow-up appointment with her primary care physician on Tuesday, 2 days from now. I stressed the importance of keeping this appointment for her recheck of her right foot cellulitis. Disposition is discharged home in stable condition. Discharge Plan Triage Chief Complaint: Cellulitis ED Provider: Herrera Correa Dx/Rx/DC Orders Clinical Impression: Cellulitis of foot, Lymphangitis Instructions: ED Cellulitis, ED Lymphangitis Prescriptions: New sulfamethoxazole-trimethoprim [Bactrim DS] 800-160 mg tablet 1 tab PO BID 10 Days Qty: 20 0RF No Action losartan 50 MG tablet 25 mg PO DAILY citalopram 10 mg tablet 20 mg PO DAILY hydrochlorothiazide 25 MG tablet 25 mg PO DAILY amlodipine 10 mg PO.IVFORM DAILY pantoprazole [Protonix] 40 mg tablet,delayed release (DR/EC) 40 mg PO BID Qty: 60 0RF Primary Care Provider: Jonathan Wright Referrals: Jonathan Wright MD [Primary Care Provider] - 2 Days Activity Restrictions/Additional Instructions: Follow-up with your primary care physician on Tuesday as scheduled. Start taking your cephalexin prescription again along with the new antibiotic prescribed. Disposition Disposition: Home, Self Care Discharge Date/Time: 09/04/22 15:52
[2022-09-04 15:40] VITALS: BP 144/94; PULSE 93; RESP 18; TEMP 35.9; O2SAT 96
[2022-09-04] MEDS: Smz/Tmp Ds Tablet 1 TABLET PO (15:44)
== END 2022-09-04 15:52 | disposition home or self-care (01) ==
PROVIDERS: Emergency Provider Emergency Medicine; PCP Internal Medicine; Visit Provider Emergency Medicine
DX: L03.115 Cellulitis of right lower limb (principal); I10 Essential (primary) hypertension; R73.03 Prediabetes; M79.671 Pain in right foot; M79.89 Other specified soft tissue disorders; F41.9 Anxiety disorder, unspecified; B95.62 Methicillin resistant Staphylococcus aureus infection as the cause of diseases classified elsewhere; F32.A Depression, unspecified; Z79.899 Other long term (current) drug therapy
CPT/HCPCS: 99283

== ENCOUNTER 2023-04-04 15:21 | Emergency (ER) | payer OTHER, MEDICARE, SELFPAY ==
[2023-04-04 15:23] VITALS: BP 169/89; PULSE 83; RESP 16; TEMP 35.6; O2SAT 97; BMI 17.8
[2023-04-04 15:26] VITALS: O2SAT 95
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
[2023-04-04 17:04] VITALS: BP 176/98; PULSE 68; RESP 16; O2SAT 94
[2023-04-04] MEDS: Acetaminophen 500 MG Tablet 1000 MG PO (17:04)
== END 2023-04-04 17:06 | disposition home or self-care (01) ==
PROVIDERS: Emergency Provider Student in an Organized Health Care Education/Training Program; PCP Internal Medicine; Visit Provider Student in an Organized Health Care Education/Training Program
DX: S06.0X0A Concussion without loss of consciousness, initial encounter (principal); I10 Essential (primary) hypertension; S16.1XXA Strain of muscle, fascia and tendon at neck level, initial encounter; V89.2XXA Person injured in unspecified motor-vehicle accident, traffic, initial encounter
CPT/HCPCS: 70450; 72125; 99284